=== PATIENT | male | born 1955 ===

== ENCOUNTER → 2018-06-12 | Emergency (ER) | payer OTHER ==
[~2018-06-12] VITALS: Ht 170.2 cm; Wt 113.4 kg
== END | disposition left against medical advice (07) ==
LOC: ER 10:22
DX: Z53.20 Procedure and treatment not carried out because of patient's decision for unspecified reasons (principal)

== ENCOUNTER 2020-04-15 17:29 | Emergency (ER) | payer OTHER ==
[~2020-04-15] VITALS: Ht 175.3 cm; Wt 84.8 kg
== END 2020-04-15 19:58 | disposition home or self-care (01) ==
LOC: ER 17:29
DX: I47.1 Supraventricular tachycardia (principal); N39.498 Other specified urinary incontinence